=== PATIENT | male | born 1985 | race Asian ===

== ENCOUNTER 2020-01-25 22:31 | Emergency (ER) | payer BC ==
[~2020-01-25] VITALS: Ht 175.3 cm; Wt 91.8 kg
[2020-01-25 22:38] VITALS: BP 154/94
== END 2020-01-25 23:47 | disposition home or self-care (01) ==
LOC: ER 22:33
DX: M25.562 Pain in left knee (principal)
CPT/HCPCS: 29505; 73564; 99284